=== PATIENT | female | born 1930 | race Caucasian/White ===

== ENCOUNTER 2019-04-12 19:55 | Emergency (ER) | payer MEDICARE, OTHER ==
[~2019-04-12 19:55] MED LIST: ALBU8.5H8 IH; AMLO5TAB4 PO; FLUT1DIS3 IH; IRBE75TA11 PO
[2019-04-12] MEDS ORDERED: ACETAMINOPHEN 325 MG TABLET ONE (20:56)
[2019-04-12] MEDS ORDERED: ACETAMINOPHEN 325 MG TABLET PO ONE (21:00)
== END 2019-04-12 21:10 | disposition home or self-care (01) ==
DX: S20.162A Insect bite (nonvenomous) of breast, left breast, initial encounter (principal); S20.161A Insect bite (nonvenomous) of breast, right breast, initial encounter; L08.9 Local infection of the skin and subcutaneous tissue, unspecified; R21 Rash and other nonspecific skin eruption; W57.XXXA Bitten or stung by nonvenomous insect and other nonvenomous arthropods, initial encounter; Y93.89 Activity, other specified; Y92.89 Other specified places as the place of occurrence of the external cause; Y99.8 Other external cause status